=== PATIENT | male | born 1985 | race African-American/Black ===

== ENCOUNTER 2021-11-29 09:02 | Emergency (ER) | payer SELFPAY ==
[~2021-11-29] VITALS: Ht 172.7 cm; Wt 65.0 kg
[2021-11-29 14:00] VITALS: BP 132/80
== END 2021-11-29 14:20 | disposition home or self-care (01) ==
LOC: ER 09:02
DX: R46.2 Strange and inexplicable behavior (principal)
CPT/HCPCS: 99281